=== PATIENT | male | born 1990 | race Caucasian/White ===

== ENCOUNTER 2022-08-16 18:51 | Emergency (ER) | payer SELFPAY ==
[2022-08-16 18:52] VITALS: BP 147/90; PULSE 86; RESP 14; TEMP 36; O2SAT 100; BMI 22.8
--- NOTE | 2022-08-16 19:06 | ED.VIS.DENTA ---
HPI History of Present Illness Chief Complaint: Dental Narrative Narrative: 31-year-old male presents with injury to his mouth that he sustained a few hours ago. He was helping a friend remove the bed liner from a truck, and it got stuck. When he pulled harder, the liner ripped, and hit him in the mouth. He sustained a laceration to the gums below his teeth in his lower jaw. He states his tetanus immunization is up-to-date. He denies other injury. He denies malocclusion but wanted to have his laceration evaluated. PFSH PFSH Home Medications No Known/Unobtainable [No Known Home Medications] 05/19/13 [History Last Taken Unknown] Allergy/AdvReac Type Severity Reaction Status Date / Time No Known Allergies Allergy Verified 08/16/22 18:52 Social History Smoking Status: Unknown if ever smoked ROS ROS ED ROS Narrative Constitutional: No fever, no chills. HEENT: No sore throat. No neck pain. No loss of vision. No rhinorrhea. Laceration to gums below teeth and lower jaw. Cardiovascular: No chest pain. No palpitations. No pedal edema. Respiratory: No cough, no shortness of breath. Abdominal: No abdominal pain. No nausea. No vomiting. Genitourinary: No dysuria. No hematuria. Musculoskeletal: No myalgias. No arthralgias. Neurologic: No headaches. No dizziness. No lightheadedness. Skin: No rash. No change in color. Psychiatric: No depression. No anxiety. EXAM Physical Exam Narrative Exam Narrative: Afebrile. Vital signs noted. HEENT: Normocephalic. Atraumatic. PERRL, EOMI. Neck soft and supple. No point tenderness or step off. Inspection of the mouth reveals a 1.5 cm laceration of the gingiva below his teeth in his lower jaw, no active bleeding. No malocclusion, no tooth exposure. Airway is patent. No drooling or trismus. Cardiovascular: Regular rate and rhythm. No murmurs, rubs, or gallops appreciated. Respiratory: No tachypnea. Lungs clear to auscultation bilaterally. Gastrointestinal: Abdomen soft, nontender, with normoactive bowel sounds. No rebound or guarding. Neurological: Awake. Alert. Nonfocal, nonlateralizing. Skin: No rash. Normal color. No pallor. Musculoskeletal: No pedal edema. Full range of motion extremities. Const Vital Signs: 08/16/22 18:52 Temperature 96.8 F L Temperature Source Temporal Pulse Rate 86 Respiratory Rate 14 Blood Pressure 147/90 H Blood Pressure Mean 109 Pulse Ox 100 Oxygen Delivery Method Room Air MDM MDM MDM Narrative Medical decision making narrative: Patient was reassured. His tetanus immunization is up-to-date. I do not feel that this laceration is amenable to suturing, and I do feel that it is best to heal by secondary intent. Additionally, I do not feel antibiotics are indicated. He will start a clear liquid diet and/or soft foods. He was told to cleanse his mouth using warm water/warm salt water after eating. I feel he can be discharged safely home with follow-up. I do not feel that any imaging is indicated, I do not feel that antibiotics are indicated for this simple laceration of the gingiva. He will follow-up with a dentist as soon as possible. He was also referred to a primary care provider. Return instructions were reviewed. Disposition is discharged home in stable condition. Discharge Plan Triage Chief Complaint: Dental ED Provider: Carlos Connor Dx/Rx/DC Orders Clinical Impression: Laceration of gum, Traumatic injury of mouth Instructions: ED Laceration, Lip or Mouth Prescriptions: No Action No Known Home Medications Primary Care Provider: Care Physician,No Primary Referrals: Saad Hart MD [Med Staff - [employer]ways Control Specialist] - As Needed Care Physician,No Primary [Primary Care Provider] - Activity Restrictions/Additional Instructions: Follow-up with a dentist as soon as possible. Cleanse your mouth laceration by swishing warm water throughout your mouth after eating. Soft foods initially. Disposition Disposition: Home, Self Care
== END 2022-08-16 19:19 | disposition home or self-care (01) ==
PROVIDERS: Emergency Provider Emergency Medicine; Visit Provider Emergency Medicine
DX: S01.512A Laceration without foreign body of oral cavity, initial encounter (principal); W26.8XXA Contact with other sharp object(s), not elsewhere classified, initial encounter
CPT/HCPCS: 99282